=== PATIENT | male | born 2000 ===

== ENCOUNTER 2023-08-07 15:40 | Outpatient (REF) | payer MEDICARE, MEDICAID, SELFPAY ==
[2023-08-07 16:48] LABS: HCT 46.5 % (40.0-50.0); HGB 15.2 g/dL (13.5-17.5); MCH 27.6 pg (27.0-33.0); MCHC 32.7 % (32.0-36.0); MCV 84 fL (80-95); MPV 9.8 fL (8.0-11.0); Platelet Count 212 10^3/uL (130-400); RBC 5.51 10^6/uL (4.36-5.78); RDW 12.6 % (11.8-14.1); WBC 7.42 10^3/uL (4.4-10.8)
[2023-08-07 17:26] LABS: ALT 49 U/L (16-63); AST 28 U/L (15-37); Albumin 4.2 g/dL (3.4-5.0); Alkaline Phosphatase 75 U/L (46-116); Anion Gap 6.8 mmol/L (3-11); BUN 17 mg/dL (7-18); Bilirubin, Total 0.5 mg/dL (0.2-1.0); CO2 29.2 mmol/L (21.0-32.0); CREATININE 0.8 mg/dL (0.70-1.30); Calculated LDL 85 mg/dL (<100); Chloride 102 mmol/L (98-107); Cholesterol 141 mg/dL (<200); Estimated GFR 125.95 (mL/min/1.73m2); Glucose 100 mg/dL (74-106); HDL Cholesterol 45 mg/dL (40-60); Potassium 4.5 mmol/L (3.5-5.1); Sodium 138 mmol/L (136-145); Total Protein 7.5 g/dL (6.4-8.2); Triglyceride 55 mg/dL (<150)
[2023-08-07 17:27] LABS: TSH (W/Ref FT4) 1.49 uIU/mL (0.36-3.74); Vitamin B12 366 pg/mL (193-986)
== END 2023-08-07 15:41 | disposition home or self-care (01) ==
LOC: NCHCN 15:40
PROVIDERS: Visit Provider Nurse Practitioner Family
DX: R03.0 Elevated blood-pressure reading, without diagnosis of hypertension (principal); R53.83 Other fatigue; E66.9 Obesity, unspecified; Z83.42 Family history of familial hypercholesterolemia
CPT/HCPCS: 80053; 80061; 85027; 82607; 84443